=== PATIENT | female | born 2005 | race Caucasian/White ===

== ENCOUNTER → 2023-12-01 | Outpatient (CLI) | payer BC, SELFPAY ==
[2023-12-01 15:30] LABS: Absolute Lymphocyte Count 2.19 X10^3/uL (0.83-4.51); Absolute Neutrophil Count 4.6 X10^3/uL (2.0-7.7); Basophil# 0.03 X10^3/uL; Basophil% 0.4 % (0-1); Eosinophil# 0.08 X10^3/uL; Hematocrit 40.2 % (37-47); Hemoglobin 13.1 g/dL (12.0-15.0); Lymphocyte # 2.19 X10^3/ul (0.83-4.51); Lymphocyte % 28.5 % (19-41); Mean Corp Hgb Conc 32.6 g/dL (32-36); Mean Corpuscular Hgb 26.9 pg (27.0-32.0); Mean Corpuscular Volume 82.5 fL (81-99); Monocyte# 0.72 X10^3/uL; Monocyte% 9.4 % (0-10); NRBC Flagged by Analyzer 0 % (0-5); Neutrophil # 4.64 X10^3/uL (2.7-7.7); Neutrophil % 60.3 % (47-70); Platelet Count 277 K/mm3 (150-450); RBC Distribution Width CV 12.3 % (11.6-14.6); Red Blood Count 4.87 M/mm3 (4.2-5.4); White Blood Count 7.7 K/mm3 (4.4-11.0)
== END | disposition home or self-care (01) ==
LOC: MTLAB 12:42
PROVIDERS: PCP Family Medicine; Referring Provider Family Medicine; Visit Provider Family Medicine
DX: R42 Dizziness and giddiness (principal); R53.83 Other fatigue
CPT/HCPCS: 36415; 84443; 85025

== ENCOUNTER → 2024-10-11 | Outpatient (CLI) | payer BC, SELFPAY | END | disposition home or self-care (01) | LOC: LABSPEC 18:16 | PROVIDERS: PCP Family Medicine; Visit Provider Family Medicine | DX: Z12.4 Encounter for screening for malignant neoplasm of cervix (principal); Z11.3 Encounter for screening for infections with a predominantly sexual mode of transmission ==

== ENCOUNTER 2025-02-04 19:23 | Emergency (ER) | payer OTHER, BC, SELFPAY ==
[2025-02-04 19:23] VITALS: BP 139/91; PULSE 92; RESP 14; TEMP 36.1; O2SAT 98; BMI 31.9
--- NOTE | 2025-02-04 19:45 | EX.ED.GENINJ ---
HPI History of Present Illness Chief Complaint: Other, Pain/Inj Detail of Chief Complaint: Hit by a resident at the [facility]. Nosebleed resolved. 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 Had a nosebleed. It since resolved. Occurred about an 3-1/2 hours ago. Denies any other complaints. No blood thinners. No LOC. Prior similar symptoms: No Recent Illness/Hospitalization: No PFSH PFSH Medical History no medical history Home Medications ?Medication ?Instructions ?Recorded ?Last Taken ?Type omeprazole 20 mg capsule,delayed 20 mg PO DAILY 02/04/25 Unknown History release Allergy/AdvReac Type Severity Reaction Status Date / Time shrimp Allergy Severe Anaphylaxis Verified 02/04/25 19:25 Latex, Natural Rubber Allergy Mild WELTS Verified 02/04/25 19:25 Family History no significant family his Surgical History no surgical history Social History Smoking Status: Never smoker ROS ROS ED ROS Narrative Denies recent illness. Constitutional Constitutional ED: Denies fever(s) Eyes Eyes: Denies blurry vision ENT ENT ED: Denies ear pain Cardiovascular Cardiovascular: Denies chest pain Respiratory/Chest Respiratory/Chest: Denies cough Gastrointestinal Gastrointestinal: Denies abdominal pain Genitourinary Genitourinary ED: Denies dysuria Musculoskeletal Musculoskeletal: Denies arthralgias Integumentary Denies abscess Neurologic Neurologic: Denies headache(s) Psychiatric Psychiatric: Denies anxiety Endocrine Endocrinology: Denies cold intolerance Hematologic/Lymphatic Hematologic/Lymphatic: Denies easy bleeding Allergic/Immunologic Allergic/Immunologic ED: Denies mouth swelling EXAM Physical Exam Narrative Exam Narrative: Well-appearing 19-year-old female vital signs are stable afebrile no acute distress. H EENT exam pupils round react to light. Moist mucous membranes. Minimal swelling left side of her nose. Nasal bridge nontender. Pierced on the right side of the nose. Currently no blood or active bleeding on either side. Posterior pharynx normal. No tenderness otherwise to her face. No bony deformity of the nasal bridge. Neck nontender. Lungs clear. Heart regular rhythm rate about 90 no murmur. Chest wall ribs nontender. Abdomen soft nontender. Moving all 4 extremities. Neurologically awake alert. GCS 15. Acting appropriately. Const Vital Signs: 02/04/25 19:23 02/04/25 19:29 Temperature 97 F L Temperature Source Temporal Pulse Rate 92 Respiratory Rate 14 Respiratory Effort Normal Respiratory Pattern Normal Blood Pressure 139/91 H Blood Pressure Mean 107 Pulse Ox 98 Oxygen Delivery Method Room Air MDM MDM MDM Narrative Medical decision making narrative: 19-year-old [facility] had [facility] noseble[facility] that since resolved. No signs of nasal fracture. No blood or bleeding currently. Discharged home after drug testing this is a Worker's Comp. case. Ice to the area. Direct pressure is needed. Motrin and/or Tylenol for pain. History & Record Review Discussion w/independent historian: Patient Additional record(s) reviewed:: Prior outpatient record Discharge Plan Triage Chief Complaint: Other, Pain/Inj ED Provider: Jaret Reno Dx/Rx/DC Orders Clinical Impression: Encounter related to worker's compensation claim, Epistaxis due to trauma, Nasal contusion Instructions: ED Epistaxis (Adult), ED Nasal Contusion Prescriptions: No Action omeprazole 20 mg capsule,delayed release(DR/EC) 20 mg PO DAILY Primary Care Provider: Jigna Sousa Referrals: [facility] [Group of Physicians, Medical] - As Needed Jigna Sousa MD [Primary Care Provider, Family Practice] Activity Restrictions/Additional Instructions: Ice to your nose to decrease pain and swelling. Motrin for pain and swelling. If it rebleeds hold direct pressure for 20 to 30 minutes till it stops. If it does not stop you can soak cotton balls and Afrin nasal spray and put them in both sides your nose let them sit there 10 to 20 minutes and intake amount should stop the bleeding. Print Language: Estonian Disposition Disposition: Home, Self Care
[2025-02-04 19:52] VITALS: BP 132/79; PULSE 85; RESP 17; TEMP 36.2; O2SAT 100
--- OUTSIDE RECORDS SUMMARY | 2025-02-04 19:59 | XMS RPT_ITS | CCD ---
Author Organization [facility] Care Team Providers Care Plastics Sheet Finishing Press Operator Name Role Phone Free, Text Entry Unavailable Unavailable Moomaw, Hu I Unavailable Unavailable MOOMAW, HALL CLERK HU RAJESH Attending Unavailable Pending, Provider Primary Care Unavailable Unavailable Primary Care Provider Unavailchristie e Lars MAIER, Dr. Benito Primary Care Provider [phone] Lars MAIER, Dr. Benito Attending Provider [phone] Jigna Sousa Attending Unavailable Jigna Sousa Primary Care Unavailable Allergies Allergy Classification Reported Allergen(s) Allergy Type Date of Onset Reaction(s) Facility (1 source) Latex Drug Allergy 03-06-2024 Rash [facility] (1 source) shrimp allergenic extract Drug Allergy 03-06-2024 Anaphylaxis [facility] Medications Current Medications Medication Drug Class(es) Dates Sig (Normalized) Sig (Original) 168 hr ethinyl estradiol 0.22596 mg/hr / norelgestromin 0.66573 mg/hr transdermal system (1 source) Progestin, Estrogen XULANE 150-35 MCG/DAY PATCH ; 1 patch transdermal once a week Quantity: 0 Refills: 0 Ordered: 19-Dec-2021 Daisha Whitley Generic Substitution Allowed Comments: Source=Surescripts, Medication=XULANE 150-35 MCG/DAY PATCH, OriginatingSource=[facility], OriginatingProvider= JIGNA SOUSA, Duration=84, Date Last Modified/Filled= Comment on above: Source=Surescripts, Medication=XULANE 150-35 MCG/DAY PATCH, OriginatingSource=[facility], OriginatingProvider=MIEDEL, JIGNA, Duration=84, Date Last Modified/Filled=14-Oct-2021 etonogestrel 68 mg drug implant (1 source) Progestin etonogestrel (NEXPLANON) subdermal implant 68 mg 68 mg by SUBDERMAL route. Active omeprazole 20 mg delayed release oral capsule (1 source) Proton Pump Inhibitor Start: 12-01-2023 omeprazole (PRILOSEC) 20 mg capsule 12/01/2023 Active ondansetron 4 mg disintegrating oral tablet (1 source) Serotonin-3 Receptor Antagonist Start: 03-06-2024 take 1 tablet by mouth every eight hours as needed ondansetron orally disintegrating (ZOFRAN ODT) 4 mg disintegrating tablet Take 1 tablet by mouth every 8 hours as needed. 20 tablet 03/06/2024 Active Problems Problem Classification Problem Date Documented Da te Episodic/Chronic E Codes: Fall (1 source) Fall on same level from slipping, tripping and stumbling without subsequent striking against object, initial encounter; Translations: [Fall same lev from slip/trip w/o strike against object, init] Onset: 12-19-2021 Episodic E Codes: Natural/environment (1 source) Overexertion from prolonged static or awkward postures, initial encounter; Translations: [Overexertion from prolonged static or awkward postures, init] Onset: 12-19-2021 Episodic Nausea and vomiting (1 source) Nausea and vomiting; Translations: [Nausea with vomiting, unspecified] 03-06-2024 Episodic Other injuries and conditions due to external causes (1 source) Unspecified injury of left lower leg, initial encounter; Translations: [Unspecified injury of left lower leg, initial encounter] Onset: 12-19-2021 Episodic Other non-traumatic joint disorders (1 source) Pain in left knee; Translations: [Pain in left knee] Onset: 12-19-2021 Episodic Other screening for suspected conditions (not mental disorders or infectious disease) (1 source) Encounter for screening for malignant neoplasm of cervix; Translations: [Encounter for screening for malignant neoplasm of cervix] Onset: 11-28-2024 Episodic Sprains and strains (2 sources) Sprain of knee; Translations: [Sprains and strains of unspecified site of knee and leg] Onset: 12-19-2021 12-19-2021 Episodic Unclassified (2 sources) LEFT KNEE INJURY 12-19-2021 Comment on above: LEFT KNEE INJURY Unclassified (1 source) Sprain of left knee, unspecified ligament, initial encounter 12-19-2021 Results Test Name Value Interpretation Reference Range Facil ity [id number] 10-18-2024 [facility]. COMMENT Normal . [facility] Comment on above: Order Comment: CYTOL OGY INFORMATION: - CLINICAL INFORMATION: OTHER - Non - DATE LMP/MENOPAUSE: NO PERIOD ( CONTROL) LMP - COLLECTION VIAL: Thin Prep Vial - AUTOMATION ENGINEER SOURCE: CERVICAL/ENDOCERVICAL - COLLECTION TECHNIQUE: CX BROOM ONLY ACOG AGE GDLN HPV PLUS CT/NG Result Comment: Test Ordered: IGP,Aptima HPV Age Gdln, CtNg Specimen Comment: [id number] Specimen Comment: No. of containers..01 ThinPrep Vial Age Gdln ACOG Testing =G Reference Range: . DIAGNOSIS: Comment WB Reference Range: . NEGATIVE FOR INTRAEPITHELIAL LESION OR MALIGNANCY. Specimen adequacy: Comment WB Reference Range: . Satisfactory for evaluation. Endocervical and/or squamous metaplastic cells (endocervical component) are present. Performed by: Comment WB Reference Range: . Stevan Ravi, Aeronautical Project Engineer (ASCP) . WB Reference Range: . Note: Comment WB Reference Range: . The Pap smear is a screening test designed to aid in the detection of premalignant and malignant conditions of the uterine cervix. It is not a diagnostic procedure and should not be used as the sole means of detecting cervical cancer. Both false-positive and false-negative reports do occur. Test Methodology: Comment WB Reference Range: . This liquid based ThinPrep(R) pap test was screened with the use of an image guided system. Comment WB Reference Range: . The HPV DNA reflex criteria were not met with this specimen result therefore, no HPV testing was performed. Chlamydia, Nuc. Acid Amp Negative =G Reference Range: Negative Gonococcus, Nuc. Acid Amp Negative =G Reference Range: Negative Performed at: =G - [facility] [id number] Educational Technology Coordinator: Maria Fernanda Lanza MD, Phone: [phone] Performed at: - [address] [id number] Educational Technology Coordinator: Maria Fernanda Lanza MD, Phone: [phone] Performed By: #### L [id number] #### [facility] [place], [address] CNCOon 03-06-2024 CNCO Letter Text Normal [facility] CNOVon 03-06-2024 CNOV Office Visit (UCWSTR ) -------- SIRISHA PRADO ([id number]) 1 F Date Time Provider Department 03/06/24 1:45 PM JENNIFER CARMONA [facility] During your visit today, we recorded the following information about you: Temperature Pulse Respiration Blood pressure 99.5 degrees 118/minute 18/minute 116/78 Weight 89.5 kg Jennifer Carmona APRN.CNP 03/06/2024 2:27 PM Signed This note was created using LeisureLinkriter. Subjective Sirisha rPado is a 18 year old female. Vomiting Associated symptoms include abdominal pain. vomiting started about 2 hrs and woke up with abd pain this morning Review of Systems Gastrointestinal: Positive for abdominal pain and vomiting. Objective BP 116/78 Pulse 118 Temp 37.5 ?C (99.5 ?F) Resp 18 Wt 89.5 kg (197 lb 5 oz) LMP 09/01/2016 (Approximate) SpO2 100% Physical Exam Pulmonary: Effort: Pulmonary effort is normal. Neurological: Mental Status: She is alert. Assessment and Plan ASSESSMENT/PLAN: 1. Nausea and vomiting, unspecified vomiting type - ICD9: 787.01, ICD10: R11.2 Zofran ordered Stressed the importance of fluid intake, soft bland foods Follow up as needed Jennifer Carmona APRN.CNP Medical Decision Making: Problems: Low: Acute, uncomplicated illness or injury Risk: Moderate: Drug management Medical Decision Making Level: 3 - Low Allergies As of Date: 03/06/2024 Noted Allergy Reaction SHRIMP 03/06/2024 10 - Anaphylaxis LATEX 03/06/2024 2 - Rash Date Reviewed: 03/06/2024 Reviewed by: Maria Ines Zarco MA - Fully Assessed Reason for Visit: Vomiting [120] Cmt: X2 hours, bilateral lower abd pain Primary Visit Diagnosis:Nausea and vomiting, unspecified vomiting type [R11.2] Order(s):ondansetron orally disintegrating (ZOFRAN ODT) 4 mg disintegrating tabletTake 1 tablet by mouth every 8 hours as needed.Disp: 20 tabletRfl: 0 Prescriptions as of 03/06/2024 - omeprazole (PRILOSEC) 20 mg capsule - etonogestrel (NEXPLANON) subdermal implant 68 mg 68 mg by SUBDERMAL route. - ondansetron orally disintegrating (ZOFRAN ODT) 4 mg disintegrating tablet Take 1 tablet by mouth every 8 hours as needed. Problem List As Of Date: 03/06/2024 (None) Prescriptions ordered this encounter Disp Refills Start End ONDANSETRON 4 MG DISINTEGRATING TABL* 20 t* 0 03/06/2024 Route: ORAL Sig: Take 1 tablet by mouth every 8 hours as needed. Encounter Status:Closed by JENNIFER CARMONA on 03/06/24 [facility] KNEE CMPLT, 4 OR MORE VIEWSo n 12-19-2021 KNEE CMPLT, 4 OR MORE VIEWS Patient Name: SIRISHA PRADO STUDY: KNEE; COMPLT, 4 OR MORE VIEWS; Left; 12/19/2021 3:30 pm INDICATION: slipped on water last night. generalized pain . COMPARISON: None. ACCESSION NUMBER(S): [id number] ORDERING CLINICIAN: HU PAZ FINDINGS: Four views left knee: There is no fracture or dislocation. There is a small suprapatellar joint effusion. IMPRESSION: Small suprapatellar joint effusion; no acute bony abnormality. Electronically signed by: GWEN PAYTON MD [facility] Provider Note - ED v3on 11-24 Provider Note - ED v3 Provider Note: Chart Review: ED NOTES ED NOTES: HPI: Last night at work patient states that she slipped on a wet floor hyperextending her left knee. She states that she has been able to ambulate but it has been painful. She otherwise denies any other injuries or health concerns. ROS: Constitution: Denies Eyes: Darian Ears: Denies Nose: Denies Mouth/Teeth: Denies Throat/Neck: Denies Cardiovascular: Denies Respiratory: Denies Gastrointestinal: Denies Musculoskeletal: Left knee pain Integumentary: Denies Endocrine: Denies Neuro: Denies Psychiatric: Denies Heme/Lymph: Denies Allergic/Immunologic: Denies Medical/Family HX: Denies any chronic medical history. Denies any tobacco alcohol or drug use ====Physical Exam==== Constitutional/General: Alert , well appearing, nontoxic, and in NAD. Head: Normocephalic and atraumatic. Eyes: PER, conjunctive normal, sclera nonicteric, subconjunctival layer is pink. Mouth: handling secretions, no trismus, moist mucous membranes Neck: Supple, full ROM, no stridor, no crepitus, no meningeal signs. Trachea at midline. Respiratory: not in respiratory distress. Chest: normal chest movement GI: nondistended Musculoskeletal: Diffuse tenderness of left knee with no obvious deformities noted. No pain with medial or lateral pressure. No pain with anterior drawer test. Integument: Skin warm and dry, no rashes. Neurologic: GCS 15, no focal deficits Psychiatric: Normal affect. I have reviewed and confirmed nurses/medics notes for patient past, social and family history. Portions of this note were dictated by speech recognition. An attempt at proof reading was made to minimize errors. Minor errors in internal medicine veterinary technician may be present. HISTORY OF PRESENTING ILLNESS SIRISHA is a 16 year old Female and was seen by me at 19-Dec-2021 15:08 for a chief complaint of knee injury (Patient to ED reference knee pain. Patient was at work and slipped on urine/water on floor hyperextending her left knee. Treated at home with ibuprofen.)(1). Triage Information: Most recent Vital Sign Value Date Temp (F): 98.2 12-19-2021 15:08 Temp (C): 36.7 12-19-2021 15:08 Heart Rate (beats/min): 96 12-19-2021 15:08 Respirations (breaths/min): 15 12-19-2021 15:08 SpO2 (%): 98 12-19-2021 15:08 BP Systolic (mm Hg): 143 12-19-2021 15:08 BP Diastolic (mm Hg): 87 12-19-2021 15:08 PAST MEDICAL HISTORY ALLERGIES/INTOLERANCES: No Known Allergies HEALTH HISTORY: No documented data. OUTPATIENT MEDICATIONS: Home Medications Review Status for Reconciliation: Complete Med Status: Patient Currently Takes Medications Drug Name: XULANE 150-35 MCG/DAY PATCH Instructions: 1 patch transdermal once a week SIGNIFICANT EVENTS: No documented data. CRITICAL CARE RESULTS: Radiology Results: Impression: Small suprapatellar joint effusion; no acute bony abnormality. Xray Knee Complete 4 or more View [Dec 19 2021 3:38PM] MDM MDM/ED COURSE: 1550-final results reviewed with patient. X-ray of the knee was unremarkable. Patient was offered crutches which she declined. She was put on light duty until cleared by occupational health. The x-ray of your knee does not show any concerning abnormalities and I feel your symptoms today are most consistent with a sprain of the knee. I recommend that you slowly resume activities as tolerated, follow-up with occupational health, and otherwise feel free to return to the nearest ER for any new or worsening concerns. DISPOSITION Diagnosis/Annotation: ED Dx Name:Sprain of left knee, unspecified ligament, initial encounter Code:S83.92XA Disposition: discharged Type: home CONSULT CRITICAL CARE TIME Is this a critically ill patient: no Electronic Signatures: Hu Paz I (FLUTE TEACHER-HALL CLERK) (Signed 19-Dec-2021 15:53) Authored: ED Notes, HPI, PMH, PE, Results/Vital Signs, MDM/ED Course, Clinical Impression, Attestation, Chart Review, Scores Last Updated: 19-Dec-2021 15:53 by Hu Paz I (FLUTE TEACHER-HALL CLERK) References: 1. Data Referenced From Triage - ED 19-Dec-2021 15:08 [facility] Risk Screen - Adult Emergenc yon 12-19-2021 Risk Screen - Adult Emergency Preferred Language: Preferred Language: Preferred Language for Discussing Health Care (patient/designee)Linda salcedo Patient Preferred Pharmacy: Patient Preferred Pharmacy Statement: I have reviewed and updated the patient's preferred pharmacy selection for today's visit. Advanced Directives: Advance Directive/DNRno Family Violence Adult: Abuse Screen: Are you or have you been threatened or abused physically, emotionally, or sexually by anyoneno Learning Assessment (Patient): Learning Assessment (Patient): Patient is Able to be Assessed for Learningyes Factors Influencing Readiness to Learnacuteness of illness Factors that Impact Ability to Learnnone Devices/Methods Used to Communicatenone Learning Preferencesverbal instruction; written material Cultural Considerationsnone Developmental Considerationsnone Moravian Considerationsnone Learning Assessment (Other Learner): Learning Assessment (Other Learner): Other learner availableno Pressure Injury/TB/Substance: Pressure Injury: Do you have a coughno Smoking Statusnever smoker Alcohol Usedenies Drug Usedenies Admission Risk Screen: Significant IndicatorsComplete CAGE: CAGE: Is this an injured patient at a Trauma Center ([facility]/[place] /[place]): no Electronic Signatures: Cathy Mahmood (RN) (Signed 19-Dec-2021 15:45) Authored: Preferred Language, Patient Preferred Pharmacy, Advanced Directives, Family Violence Adult, Learning Assessment (Patient), Learning Assessment (Other Learner), Pressure Injury/TB/Substance, Pressure Injury, CAGE Last Updated: 19-Dec-2021 15:45 by Cathy Mahmood (RUTHY) [facility] Vital Signs Date Time Vital Sign Value Performing Clinician Facility 03-06-2024 13:49-0500 Body temperature 99.5 [degF] Jennifer Kristine FLUTE TEACHER.HALL CLERK Work Phone: [facility] 03-06-2024 13:49-0500 Body weight 89.5 kg Jennifer Houston FLUTE TEACHER.HALL CLERK Work Phone: [facility] 03-06-2024 13:49-0500 Diastolic blood pressure 78 mm[Hg] Jennifer Kristine FLUTE TEACHER.HALL CLERK Work Phone: [facility] 03-06-2024 13:49-0500 Heart rate 118 /min Jennifer Houston FLUTE TEACHER.HALL CLERK Work Phone: [facility] 03-06-2024 13:49-0500 Respiratory rate 18 /min Jennifer Kristine FLUTE TEACHER.HALL CLERK Work Phone: [facility] 03-06-2024 13:49-0500 SaO2% (BldA) [Mass fraction] 100 % Jennifer Houston FLUTE TEACHER.HALL CLERK Work Phone: [facility] 03-06-2024 13:49-0500 Systolic blood pressure 116 mm[Hg] Jennifer Carmona APRN.HALL CLERK Work Phone: [facility] 12-19-2021 17:08-0400 Body height 170.1 cm Text Entry Free [facility] 12-19-2021 17:08-0400 Body temperature 98.06 [degF] Text Entry Free [facility] 12-19-2021 17:08-0400 Body weight 85.9 kg Text Entry Free [facility] 12-19-2021 17:08-0400 Diastolic blood pressure 87 mm[Hg] Text Entry Free [facility] 12-19-2021 17:08-0400 Heart rate 96 /min Text Entry Free [facility] 12-19-2021 17:08-0400 Respiratory rate 15 /min Text Entry Free [facility] 12-19-2021 17:08-0400 SaO2% (BldA) [Mass fraction] 98 % Text Entry Free [facility] 12-19-2021 17:08-0400 Systolic blood pressure 143 mm[Hg] Text Entry Free [facility] Encounters Encounter Date Encounter Type Care Provider Facility Start: 10-11-2024 End: 10-11-[address] Jigna Sousa MD Work Phone: -Laboratory Specimen Start: 10-11-2024 End: 10-11-[address] Jigna Sousa MD -Laboratory Specimen Work Phone: Start: 10-11-2024 End: 10-11-2024 ambulatory Jigna Sousa Facility:[facility] Start: 03-06-2024 End: 03-06-2024 ambulatory Facility:[facility] Start: 03-06-2024 End: 03-06-2024 Patient encounter procedure Jennifer Carmona APRN.HALL CLERK Work Phone: [facility] Comment on above: Nausea and vomiting, unspecified vomiting type (Primary Dx) Start: 12-19-2021 End: 12-19-2021 Emergency department patient visit Hu Paz [facility] Emergency 09 Plan of Treatment Date Care Activity Detail Author Start: 10-11-2024 Procedure [facility] Start: 09-27-2024 Urine microalbumin profile DTaP,Tdap,Td Vaccine (7 - Td or Tdap) [facility] Start: 10-25-2023 Covid-19 Vaccine ( season) Covid-19 Vaccine () [facility] Start: 10-25-2023 Influenza vaccination Influenza Vaccine (#1) [facility] Start: 08-28-2021 Anxiety Screening Anxiety Screening [facility] Start: 08-28-2021 Depression Screening Depression Screening [facility] Start: 08-28-2021 GC (Gonorrhea) Screening (18-24) GC (Gonorrhea) Screening (18-24) [facility] Start: 08-28-2021 Hepatitis C screening Hepatitis C Screening [facility] Start: 08-28-2021 HIV screening HIV Screening [facility] Start: 08-28-2021 Screening for Chlamydia trachomatis Chlamydia Screening () [facility] Start: 2019 Meningococcal B Vaccine: Consider Based On Risk (1 of 2 - Patient Seeks Protection) Meningococcal B Vaccine: Consider Based On Risk (1 of 2 - Patient Seeks Protection) [facility] Start: 08-28-2017 Peds To Adult Transition Annual Assessment Peds To Adult Transition Annual Assessment [facility] Start: 2015 Peds To Adult Transition Initial Discussion Peds To Adult Transition Initial Discussion [facility] Immunizations Immunization Date Immunization Notes Care Provider Dallin conner 09-09-2016 Human Papillomavirus 9-valent vaccine Jennifer Houston FLUTE TEACHER.HALL CLERK Work Phone: [facility] 10-09-2015 Human Papillomavirus 9-valent vaccine Jennifer Kristine FLUTE TEACHER.HALL CLERK Work Phone: [facility] 09-27-2014 human papilloma viru s vaccine, quadrivalent Jennifer Houston FLUTE TEACHER.HALL CLERK Work Phone: [facility] 09-27-2014 meningococcal polysaccharide (groups A, C, Y and W-135) diphtheria toxoid conjugate vaccine (MCV4P) Jennifer Houston FLUTE TEACHER.HALL CLERK Work Phone: [facility] 09-27-2014 tetanus toxoid, redu maciel diphtheria toxoid, and acellular pertussis vaccine, adsorbed Jennifer Houston FLUTE TEACHER.HALL CLERK Work Phone: [facility] 07-19-2010 Diphtheria, tetanus toxoids and acellular pertussis vaccine, and poliovirus vaccine, inactivated Jennifer Houston FLUTE TEACHER.HALL CLERK Work Phone: [facility] 07-19-2010 measles, mumps and rubella virus vaccine Jennifer Houston FLUTE TEACHER.HALL CLERK Work Phone: [facility] 07-19-2010 varicella virus vaccine Ld e Houston FLUTE TEACHER.HALL CLERK Work Phone: [facility] 06-18-2005 diphtheria, tetanus toxoids and acellular pertussis vaccine Jennifer Houston FLUTE TEACHER.HALL CLERK Work Phone: [facility] 06-18-2005 haemophilus influenz ae type b vaccine, HbOC conjugate Jennifer Houston FLUTE TEACHER.HALL CLERK Work Phone: [facility] 09-02-2004 measles, mumps and rubella virus vaccine Jennifer Kristine FLUTE TEACHER.HALL CLERK Work Phone: [facility] 09-02-2004 pneumococcal conjuga te vaccine, 7 valent Jennifer Kristine FLUTE TEACHER.HALL CLERK Work Phone: [facility] 09-02-2004 varicella virus vaccine Ld e Houston FLUTE TEACHER.HALL CLERK Work Phone: [facility] 03-07-2004 DTaP-hepatitis B and poliovirus vaccine Jennifer Kristine FLUTE TEACHER.HALL CLERK Work Phone: [facility] 03-07-2004 haemophilus influenz ae type b vaccine, HbOC conjugate Jennifer Houston FLUTE TEACHER.HALL CLERK Work Phone: [facility] 03-07-2004 pneumococcal conjuga te vaccine, 7 valent Jennifer Houston FLUTE TEACHER.HALL CLERK Work Phone: [facility] 01-03-2004 DTaP-hepatitis B and poliovirus vaccine Jennifer Houston FLUTE TEACHER.HALL CLERK Work Phone: [facility] 01-03-2004 haemophilus influenz ae type b vaccine, HbOC conjugate Jennifer Kristine FLUTE TEACHER.HALL CLERK Work Phone: [facility] 01-03-2004 pneumococcal conjuga te vaccine, 7 valent Jennifer Houston FLUTE TEACHER.HALL CLERK Work Phone: [facility] 2003 DTaP-hepatitis B and poliovirus vaccine Jennifer Kristine FLUTE TEACHER.HALL CLERK Work Phone: [facility] Work Phone: 2003 haemophilus influenz ae type b vaccine, HbOC conjugate Jennifer Kristine FLUTE TEACHER.HALL CLERK Work Phone: [facility] 2003 pneumococcal conjuga te vaccine, 7 valent Jennifer Kristine FLUTE TEACHER.HALL CLERK Work Phone: [facility] Payers Date Payer Category Payer Self-pay 2010 Unknown 2010 Unknown [id number] 2003 Unknown [id number] 2001 Unknown [id number] Unknown [id number] Unknown [id number] Social History Date Type Detail Facility [facility] Tobacco smoking consumption unknown [facility] Start: 03-06-2024 [facility] History of tobacco use Passive smoker [facility] Start: 03-06-2024 Tobacco use and exposure Smokeless tobacco non-user [facility] Start: 03-06-2024 Alcoholic beverage intake Not Asked [facility] Start: 03-06-2024 History of Social function [facility] Start: 03-06-2024 Tobacco use panel [facility] Start: 2003 Sex assigned at Not on file [facility] Start: 2003 Sex Assigned At Female W [facility] Progress note 03-06-2024 Note Date & Type Note Facility 03-06-2024 Note HNO ID: [id number] Author: JENNIFER CARMONA APRN.CNP Service: ? Author Type: Nurse Practitioner Type: Progress Notes Filed: 03/06/2024 14:27 Note Text: This note was created using Casting[employer]. Varghese Prado is a 18 year old female. Vomiting Associated symptoms include abdominal pain. vomiting started about 2 hrs and woke up with abd pain this morning Review of Systems Gastrointestinal: Positive for abdominal pain and vomiting. Objective BP 116/78 Pulse 118 Temp 37.5 ?C (99.5 ?F) Resp 18 Wt 89.5 kg (197 lb 5 oz) LMP 09/01/2016 (Approximate) SpO2 100% Physical Exam Pulmonary: Effort: Pulmonary effort is normal. Neurological: Mental Status: She is alert. Assessment and Plan ASSESSMENT/PLAN: 1. Nausea and vomiting, unspecified vomiting type - ICD9: 787.01, ICD10: R11.2 Zofran ordered Stressed the importance of fluid intake, soft bland foods Follow up as needed Jennifer Carmona APRN.CNP Medical Decision Making: Problems: Low: Acute, uncomplicated illness or injury Risk: Moderate: Drug management Medical Decision Making Level: 3 - Low [facility] History of Present illness Narrative 03-06-2024 Jennifer Carmona APRN.CNP - 03/06/2024 1:53 PM EST Note Date & Type Note Facility 03-06-2024 History of Presen t illness Narrative This note was created using [employer]. Varghese Prado is a 18 year old female. Vomiting Associated symptoms include abdominal pain. vomiting started about 2 hrs and woke up with abd pain this morning Review of Systems Gastrointestinal: Positive for abdominal pain and vomiting. Objective BP 116/78 Pulse 118 Temp 37.5 C (99.5 F) Resp 18 Wt 89.5 kg (197 lb 5 oz) LMP 09/01/2016 (Approximate) SpO2 100% Physical Exam Pulmonary: Effort: Pulmonary effort is normal. Neurological: Mental Status: She is alert. Assessment and Plan ASSESSMENT/PLAN: 1. Nausea and vomiting, unspecified vomiting type - ICD9: 787.01, ICD10: R11.2 Zofran ordered Stressed the importance of fluid intake, soft bland foods Follow up as needed Jennifer Carmona APRN.CNP Medical Decision Making: Problems: Low: Acute, uncomplicated illness or injury Risk: Moderate: Drug management Medical Decision Making Level: 3 - Low documented in this encounter [facility] Evaluation note Note Date & Type Note Facility Evaluation note Diagnosis Nausea and vomiting, unspecified vomiting type- Primary documented in this encounter [facility] Evaluation note Note Date & Type Note Facility Evaluation note No assessment information availa ble [facility] Work Phone: Reason for referral (narrative) Note Date & Type Note Facility Reason for referral (narrative) No reason for referral information available [facility] Work Phone: Summary Purpose Family History No Family History Records FoundNo Family History Records FoundNo Family History Records Found Advance Directives No Advanced Directives Records FoundNo Advanced Directives Records FoundNo Advanced Directives Records Found Additional Source Comments <item> Privacy Markings (unrecogniz ed section and content) Section Author: Peggy Cowart PROHIBITION ON REDISCLOSURE OF CONFIDENTIAL INFORMATION This notice accompanies a disclosure of information concerning a client made to you with the consent of such client. INFORMATION SOURCE (unrecogn ized section and content) DATE CREATED AUTHOR 01/07/2022 [facility] DATE CREATED AUTHOR AUTHOR'S ORGANIZ ATION 03/10/2024 [facility] DATE CREATED AUTHOR AUTHOR'S ORGANIZ ATION 12/01/2024 [facility] Source Comments (unrecognize d section and content) In the event this informatio n is protected by the Federal Confidentiality of Alcohol and Drug Abuse Patient Records regulations: The Federal rules restrict any use of the information to criminally investigate or prosecute any alcohol or drug abuse patient.[facility] Reason for Visit (unrecogniz ed section and content) Reason Comments Vomiting X2 hours, bilateral lower abd pain Care Teams (unrecognized sec tion and content) Team Status: Active Member Role/Relationship Status Dates Dr. Catherine Younger MD Family Provider Active Dr. Jigna Sousa MD Primary Care Provider Active Team Status: Inactive Member Role/Relationship Status Dates Dr. Jigna Sousa MD Primary Care Provider Active Start: October 11, 2024 End: October 11, 2024 Dr. Jigna Sousa MD Attending Provider Active Start: October 11, 2024 End: October 11, 2024 Goals (unrecognized section and content) Goals may be documented in a n alternate section FOR RECORDS PERTAINING TO PATIENTS WHO ARE OR HAVE BEEN ENROLLED IN A CHEMICAL DEPENDENCY/SUBSTANCEABUSE PROGRAM, SOME INFORMATION MAY BE OMITTED. This clinical summary was aggregated from multiple sources. Caution should be exercised in using it in the provision of clinical care. This summary normalizes information from multiple sources, and as a consequence, information in this document may materially change the coding, format and clinical context of patient data. In addition, data may be omitted in some cases. CLINICAL DECISIONS SHOULD BE BASED ON THE PRIMARY CLINICAL RECORDS. [facility]. provides no warranty or guarantee of the accuracy or completeness of information in this document.
== END 2025-02-04 19:57 | disposition home or self-care (01) ==
LOC: ED 19:56
PROVIDERS: Emergency Provider Emergency Medicine; PCP Family Medicine; Visit Provider Emergency Medicine
DX: R04.0 Epistaxis (principal); W50.0XXA Accidental hit or strike by another person, initial encounter; Y99.0 Civilian activity done for income or pay; Y92.129 Unspecified place in nursing home as the place of occurrence of the external cause
CPT/HCPCS: 99282